=== PATIENT | female | born 1990 | race Caucasian/White ===

== ENCOUNTER → 2019-09-03 | Outpatient (CLI) | payer BC, OTHER ==
[~2019-09-03] MED LIST: No meds per pt.
[2019-09-03 16:04] LABS: BASOPHILS # (AUTO) 0.06 x10^3/uL (0-0.1); BASOPHILS % (AUTO) 1 % (0-1); EOSINOPHILS # (AUTO) 0.07 x10^3/uL (0-0.4); EOSINOPHILS % (AUTO) 1 % (1-7); LYMPHOCYTES # (AUTO) 2.46 x10^3/uL (1-3.4); LYMPHOCYTES % (AUTO) 32 % (22-44); MD NO; MEAN CORPUSCULAR HEMOGLOBIN 32.2 pg (27.0-34.8); MEAN CORPUSCULAR HGB CONC 33.8 g/dL (32.4-35.8); MEAN CORPUSCULAR VOLUME 95.2 fL (80-100); MEAN PLATELET VOLUME 8.6 fL (7.4-10.4); MONOCYTES # (AUTO) 0.36 x10^3/uL (0.2-0.8); MONOCYTES % (AUTO) 5 % (2-9); NEUTROPHILS # (AUTO) 4.68 x10^3/uL (1.8-6.8); NEUTROPHILS % (AUTO) 61 % (42-75); PLATELET COUNT 302 x10^3/uL (130-400); RED BLOOD COUNT 4.48 x10^6/uL (3.82-5.3); RED CELL DISTRIBUTION WIDTH 12.8 % (9.6-15.2)
[2019-09-03 16:07] LABS: MICROSCOPIC NOT IND
[2019-09-03 16:08] LABS: CULTURE INDICATED? NO
[2019-09-03 16:13] LABS: ALANINE AMINOTRANSFERASE 31 U/L (12-78); ALBUMIN 4.1 g/dL (3.4-5.0); ANION GAP 5 mmol/L (5-15); CALCIUM 8.6 mg/dL (8.5-10.1); CHLORIDE 105 mmol/L (98-107); CREATININE 0.71 mg/dL (0.55-1.02)
[2019-09-03 16:17] LABS: ALKALINE PHOSPHATASE 51 U/L (45-117); BILIRUBIN,TOTAL 0.7 mg/dL (0.2-1.0)
== END | disposition home or self-care (01) ==
LOC: STAR 15:22
PROVIDERS: ATTEND Obstetrics & Gynecology
DX: Z01.818 Encounter for other preprocedural examination (principal); D27.9 Benign neoplasm of unspecified ovary
CPT/HCPCS: 36415; 80053; 81003; 84702; 85025

== ENCOUNTER 2019-09-09 05:39 | Day surgery (SDC) | payer BC, OTHER ==
[2019-09-08] MEDS: FENTANYL PF 100 MCG/2ML IV PRN (08:51)
[~2019-09-09] VITALS: Ht 175.3 cm; Wt 69.2 kg
[2019-09-09] MEDS ORDERED: LACTATED RINGERS 1,000 ML IV SCH (06:08)
[2019-09-09 06:25] VITALS: BP 114/78
[2019-09-09] MEDS ORDERED: GABAPENTIN 300 MG CAPSULE PO ONE (06:30)
[2019-09-09] MEDS ORDERED: ACETAMINOPHEN 500 MG TABLET PO ONE (06:30)
[2019-09-09] MEDS ORDERED: LIDOCAINE-MPF 1%, 2ML ONE (06:31)
[2019-09-09 06:54] LABS: HCG UR SG 1.032 (1.003-1.030)
[2019-09-09] MEDS ORDERED: BUPIVACAINE/PF 0.25% ONE (06:56)
[2019-09-09] MEDS ORDERED: EPINEPHRINE 1 MG/ML, 1ML ONE (06:56)
[2019-09-09] MEDS ORDERED: MIDAZOLAM 1 MG/ML, 2ML ONE (07:01)
[2019-09-09] MEDS ORDERED: FENTANYL PF 250 MCG/5ML ONE (07:01)
[2019-09-09] MEDS ORDERED: PROPOFOL 10 MG/ML, 20ML ONE (07:02)
[2019-09-09] MEDS ORDERED: BUPIVACAINE/PF-EPI 0.5% 1:200K ONE (07:21)
[2019-09-09] MEDS ORDERED: ROCURONIUM 10 MG/ML,10ML ONE (07:27)
[2019-09-09] MEDS ORDERED: LABETALOL 5MG/ML, 20ML IV PRN (07:30)
[2019-09-09] MEDS ORDERED: HYDROmorphone 2 MG/ML, 1ML IVPush PRN (07:30)
[2019-09-09] MEDS ORDERED: PROMETHAZINE 25 MG/ML, 1ML IV PRN (07:30)
[2019-09-09] MEDS ORDERED: OXYcodone 5 MG/5 ML ORAL.SOL UDC PO PRN (07:30)
[2019-09-09] MEDS ORDERED: hydrALAzine 20 MG/ML, 1ML IV PRN (07:30)
[2019-09-09] MEDS ORDERED: ONDANSETRON 2MG/ML, 2ML IV PRN (07:30)
[2019-09-09] MEDS ORDERED: MEPERIDINE/PF 25MG/ML,1ML IVPush PRN (07:30)
[2019-09-09] MEDS ORDERED: CEFAZOLIN 1,000 MG ONE (07:35)
[2019-09-09] MEDS ORDERED: DEXAMETHASONE 4 MG/ML, 1ML ONE ×2 (07:35)
[2019-09-09] MEDS ORDERED: BUPIVACAINE/PF-EPI 0.5% 1:200K INFIL ONE (07:54)
[2019-09-09] MEDS ORDERED: ONDANSETRON 2MG/ML, 2ML ONE (08:07)
[2019-09-09] MEDS ORDERED: MEPERIDINE/PF 50 MG/ML ONE (08:30)
[2019-09-09] MEDS ORDERED: FENTANYL PF 100 MCG/2ML ONE ×3 (08:45→10:52)
[2019-09-09] MEDS ORDERED: OXYcodone 5 MG/5 ML ORAL.SOL UDC ONE ×2 (08:46→09:19)
[2019-09-09] MEDS ORDERED: LORazepam 2 MG/ML, 1ML ONE (08:52)
[2019-09-09] MEDS ORDERED: KETOROLAC 30 MG/1 ML ONE (08:54)
[2019-09-09] MEDS: FENTANYL PF 100 MCG/2ML IV PRN ×4 (08:57→11:07)
[2019-09-09] MEDS ORDERED: KETOROLAC 30 MG/1 ML IVPush ONE (09:00)
[2019-09-09] MEDS ORDERED: LORazepam 2 MG/ML, 1ML IVPush PRN (09:00)
[2019-09-09] MEDS ORDERED: FENTANYL PF 100 MCG/2ML IVPush PRN (10:45)
[2019-09-09] MEDS ORDERED: PROMETHAZINE 25 MG SUPP PR ONE ×2 (10:53→11:15)
[2019-09-09] MEDS ORDERED: PROMETHAZINE 25 MG SUPP PR PRN (11:00)
== END 2019-09-09 14:15 | disposition home or self-care (01) ==
LOC: OUT 05:39
PROVIDERS: ATTEND Obstetrics & Gynecology
DX: D27.0 Benign neoplasm of right ovary (principal); Z82.49 Family history of ischemic heart disease and other diseases of the circulatory system
CPT/HCPCS: 58720; 81025; 88305; J0171; J0690; J1100; J1885; J2060; J2175; J2250; J2405; J2704; J3010; J3490; J7120